=== PATIENT | male | born 1980 | race Caucasian/White ===

== ENCOUNTER → 2018-07-11 17:21 | Outpatient (CLI) | payer OTHER, SELFPAY ==
[2017-08-03 13:46] VITALS: BMI 24.4
--- NOTE | 2018-07-11 17:43 | RAD_ITS ---
STUDY: X-RAY CHEST REASON FOR EXAM: Male, 38 years old. Cough x a few weeks. TECHNIQUE: PA and lateral views of the chest. COMPARISON: None. FINDINGS: The lungs are clear and expanded. There is no demonstrated pleural abnormality. Normal size heart. Normal mediastinum and jasper. Normal visualized pulmonary arteries. Normal visualized aortic arch and descending thoracic aorta. There are early degenerative changes of the mid thoracic spine. Normal visualized ribs, clavicles, and shoulders. There is no demonstrated abnormality of the visualized soft tissue structures of the upper abdomen. RAD/Chest PA and Lateral IMPRESSION: No acute cardiopulmonary disease. Electronically Signed: Fish Fontanez MD at 20:00 EST , Service support ,
== END ==
PROVIDERS: Referring Provider Nurse Practitioner Gerontology; Visit Provider Nurse Practitioner Gerontology
DX: R05 Cough (principal)
CPT/HCPCS: 71046

== ENCOUNTER 2018-09-20 12:49 | Emergency (ER) | payer OTHER, SELFPAY ==
[2018-08-08 14:41] VITALS: BMI 24.8
[2018-09-20 12:52] VITALS: BP 146/83; PULSE 115; RESP 18; TEMP 36.6; O2SAT 99; BMI 26.0
--- NOTE | 2018-09-20 13:38 | EKG12_ITS ---
Test Reason : SOB Blood Pressure : / mmHG Vent. Rate : 076 BPM Atrial Rate : 076 BPM P-R Int : 168 ms QRS Dur : 088 ms QT Int : 336 ms P-R-T Axes : 050 068 044 degrees QTc Int : 378 ms Normal sinus rhythm Normal ECG Confirmed by LIA BENITEZ, RANDY ([id number]), news videotape editor WAGNER SEAY ([id number]) on 09/23/2018 3:24:08 PM Referred By: DAJUAN/BILLIE Confirmed By:RANDY FITZGERALD MD
[2018-09-20 14:40] VITALS: RESP 14; O2SAT 94
[2018-09-20 15:05] VITALS: O2SAT 94
[2018-09-20 15:06] VITALS: O2SAT 93
[2018-09-20 15:07] VITALS: BP 123/78; PULSE 75; RESP 12; O2SAT 96
--- NOTE | 2018-09-20 15:15 | RAD_ITS ---
STUDY: X-RAY CHEST REASON FOR EXAM: Male, 38 years old. Shortness of breath. Numbness and tingling. TECHNIQUE: PA and lateral views of the chest. COMPARISON: Comparison is made with prior study dated July 11, 2018. FINDINGS: EKG electrodes are seen. The lungs are clear and expanded. Scattered calcified granulomas. There is no demonstrated pleural abnormality. Normal size heart. Normal mediastinum and jasper. Normal visualized pulmonary arteries. Normal visualized aortic arch and descending thoracic aorta. Normal visualized thoracic spine. Normal visualized ribs, clavicles, and shoulders. There is no demonstrated abnormality of the visualized soft tissue structures of the upper abdomen. RAD/Chest PA and Lateral IMPRESSION: Normal x-ray examination of the chest. Electronically Signed: Drew Strauss MD at 15:40 EST , Service support ,
[2018-09-20 15:24] LABS: Absolute Lymphocyte Count 1.08 X10^3/ul (0.83-4.51); Absolute Neutrophil Count 5.4 X10^3/uL (2.0-7.7); Basophil# 0.02 X10^3/uL; Basophil% 0.3 % (0-1); Eosinophil# 0.01 X10^3/uL; Eosinophils% 0.1 % (0-5); Hematocrit 45.9 % (40-54); Hemoglobin 16.1 g/dl (13.0-16.5); Lymphocyte # 1.08 X10^3/ul (4.0); Lymphocyte % 15.7 % (19-41); Mean Corp Hgb Conc 35.1 g/gl (32-36); Mean Corpuscular Hgb 32.1 pg (27.0-32.0); Mean Corpuscular Volume 91.6 fL (80-94); Mean Platelet Vol. 10.2 fl (6.2-12.0); Monocyte# 0.38 X10^3/uL; Monocyte% 5.5 % (0-10); Neutrophil # 5.37 X10^3/uL (2.7-7.7); Neutrophil % 78.1 % (47-70); Platelet Count 179 K/mm3 (150-450); RBC Distribution Width CV 12.2 % (11.6-14.6); RBC Distribution Width SD 40.4 fl (35.1-43.9); Red Blood Count 5.01 M/mm3 (4.6-6.2); White Blood Count 6.9 K/mm3 (4.4-11.0)
[2018-09-20 15:26] LABS: POSITIVE COUNT NO; POSITIVE DIFFERENTIAL NO; POSITIVE MORPHOLOGY NO
[2018-09-20 15:39] LABS: AST(SGOT) 16 U/L (15-37); Alanine Aminotransfer ALT/SGPT 31 U/L (16-61); Albumin, Serum 4.3 g/dL (3.2-5.0); Alkaline Phosphatase 70 U/L (45-117); Anion Gap 7 (5-15); BUN 16 mg/dL (7-18); BUN/Creat Ratio 17.9 RATIO (10-20); Bilirubin, Direct 0.15 mg/dL (0.00-0.30); Calcium,Total 8.9 mg/dL (8.5-10.1); Chloride 106 mmol/L (98-107); EST Glomerular Filtration Rate 102 mL/min (>60); Est Glom Filt Rate - Afr Amer 123 mL/min (>60); Estimated Creatinine Clearance 117.16 ml/min; Globulin 3.1 g/dL (2.2-4.2); Glucose 86 mg/dL (74-106); Lipase 87 U/L (73-393); Potassium 3.9 mmol/L (3.5-5.1); Protein, Total 7.4 g/dL (6.4-8.2); Sodium Level 139 mmol/L (136-145)
[2018-09-20 15:57] VITALS: BP 121/78; PULSE 66; RESP 18; O2SAT 98
--- NOTE | 2018-09-20 15:57 | ED.VISSUMM ---
- ER Visit Summary Date of Service: 09/20/18 Chief Complaint: Epigastric discomfort. History of Present Illness: The patient is a 38 M past medical history of lymph paplosis. Discomfort that he initially thought was on the skin. He feels that there is a discoloration to his skin. He denies any nausea, vomiting or diarrhea. No chest pain. No exertional dyspnea or exertional chest pain. He is never had a DVT or PE. No leg pain or swelling. No hemoptysis. Is not pleuritic in nature. He has had no recent travel, surgery, immobilization or leg pain or swelling. He became concerned because it has gotten any better and came in today. Nothing particular makes it better or worse. He called his primary care physician's office and they told her to go to the ER. Physical Examination: Well-appearing young male. Vital signs are stable and afebrile. Blood pressure 146/83. Pulse ox 9 9% on room air. H EENT exam unremarkable. Neck nontender no lymphadenopathy. Lungs clear to auscultation bilaterally. Heart regular rhythm his rate on my exam is about 80. His initial heart rate was 115 but he is has a normal heart rate now. No murmur. Chest wall nontender. Abdomen is soft, nontender nondistended normal bowel sounds no peritoneal signs. His skin on his epigastric area is completely normal he thinks it looks abnormal I see no abnormality. There is no discoloration. There is no cellulitis. There is no rash. Extremities moves all 4. Neurovascular intact. Equal symmetrical radial pulses. Calves are nontender without edema nor cords. Neurologically is awake alert with no focal deficits. Test Results: CBC normal. White count of 6. Hemoglobin 16. Chemistries normal. Normal BUN and, creatinine and gap. Liver enzymes normal. Lipase normal. Troponin normal. EKG sinus rhythm rate of 76 with no acute abnormality. Chest x-ray normal cardiac silhouette 2 view read both by myself and the radiologist. Emergency Department Course and Treatment: Patient's exam is completely normal. His workup is normal. He will be discharged home. He said his primary care physician's office had brought up potentially a CAT scan over the phone. I explained to them they were not seeing him and could not evaluate him appropriately over the phone and that he does need a CAT scan at this time. Treatment Plan: Follow-up with his primary care physician as an outpatient. Disposition: Discharge Impression: Atypical epigastric pain of uncertain etiology This note was generated with [employer] dictation software. It may contain incorrect words, spelling, and punctuation that were not noted in review of the chart prior to signing ED Disposition - Plan for ED Patient: Chief Complaint: Shortness of Breath Referrals: Vandana Mittal DO [Primary Care Provider] -
--- NOTE | 2018-09-20 16:01 | ED.DEP ---
ED Disposition - Plan for ED Patient: Disposition: Home or Assisted Living Chief Complaint: Shortness of Breath Instructions: ED Abdominal Pain Unkn Cause Referrals: Vandana Mittal DO [Primary Care Provider] - 1 Week if not improving Additional Instructions: Follow-up with your doctor.
== END 2018-09-20 16:16 | disposition home or self-care (01) ==
PROVIDERS: Emergency Provider Emergency Medicine; Family Provider Internal Medicine; PCP Internal Medicine
DX: R10.13 Epigastric pain (principal)
CPT/HCPCS: 71046; 80048; 80076; 83690; 84484; 85025; 93005; 94760; 99284; A4216

== ENCOUNTER → 2019-10-18 | Outpatient (CLI) | payer OTHER, SELFPAY ==
[2019-08-08 13:20] VITALS: BMI 25.1
--- NOTE | 2019-10-17 15:45 | CYST_PTH ---
PATIENT: ARNALDO WILKERSON Jr. LOC: [facility] U#:[id number] AGE/SX: 39/M ROOM: RE10/18/[address]: Dr. Curt Barone MD : [id number] BED: DIS: 10/18/2019 SPEC #: [id number] RECD: 10/17/19 16:51 STATUS: NEYDA REFélix #: [id number] SLY: 10/17/19 15:[address]: Curt Barone DEPT: SURGICAL PATHOLOGY RECD BY: Robbie Strauss ENTERED: 10/18/19 09:20 SP TYPE: Cyst OTHR DR: Dr. Vandana Mittal, DO Tissues: CYST Procedures: Surgery Specimen Level III HEADER OPERATION: Removal of scrotal inclusion cyst PRE-OP DIAGNOSIS: Scrotal inclusion cyst TISSUE SUBMITTED: Scrotal inclusion cyst MICROSCOPIC DIAGNOSIS Scrotal inclusion cyst, excision: Epidermal inclusion cyst. MOHIT:melody 10/19/19 MICROSCOPIC DESCRIPTION Slides are reviewed. GROSS DESCRIPTION Received is one container labeled with the patient's name and not further designated. The specimen consists of a connelly-white collapsed cyst measuring 0.7 x 0.7 x 0.2 cm. The cyst is bisected and reveals connelly-white purulent material. The entire specimen is submitted in one cassette. / SJ:rg 10/18/19 TC:5 CPT: 32821
== END | disposition home or self-care (01) ==
LOC: LABSPEC 08:17
PROVIDERS: PCP Internal Medicine; Referring Provider Urology; Visit Provider Urology
DX: D29.4 Benign neoplasm of scrotum (principal)
CPT/HCPCS: 88304